=== PATIENT | male | born 1985 | race Hispanic/Latino ===

== ENCOUNTER 2018-02-08 18:23 | Emergency (ER) | payer OTHER ==
--- NOTE | 2018-02-08 19:43 | ED PDOC ---
Lower Extremity Pain/Injury Time Seen by Provider: 02/08/18 18:50 Chief Complaint (Nursing): Lower Extremity Problem/Injury Chief Complaint (Provider): Concern for DVT History Per: Patient History/Exam Limitations: no limitations Onset/Duration Of Symptoms: Days (x1) Current Symptoms Are (Timing): Still Present Additional Complaint(s): 32 year old male presents to the ED from an urgent care for concern for possible LLE DVT. Patient notes that he had a chin augmentation surgery with a subsequent revision, most recent surgery four weeks ago. He reports he has been taking it easy, exercising for the first time yesterday since the surgery, and had some left calf pain, prompting his urgent care visit today. An EKG was done there and it showed non-specific abnormalities and patient was sent to the ED for a workup. Denies chest pain and shortness of breath; reports EKG was done at Urgent Care bc he asked for it. Of note, pt. noted his pupils to be unequal (no other associated neuro symptoms) last week and was seen at [facility] and had a cxr and CT head done both of which were normal as per pt...no labs or ekg at that visit. Pt. also followed up with optho with normal exam. PMD: none provided Past Medical History Reviewed: Historical Data, Nursing Documentation, Vital Signs Vital Signs: Last Vital Signs Temp 99.8 F H 02/08/18 18:44 Pulse 109 H 02/08/18 18:44 Resp 20 02/08/18 18:44 BP 150/89 02/08/18 18:44 Pulse Ox 98 02/08/18 18:44 - Medical History PMH: No Chronic Diseases - Surgical History Other surgeries: chin augmentation - Family History Family History: States: Unknown Family Hx - Social History Current smoker - smoking cessation education provided: No Alcohol: None Drugs: Denies - Allergies Allergies/Adverse Reactions: Allergies Allergy/AdvReac Type Severity Reaction Status Date / Time amoxicillin [From Amoxil] Allergy RASH Verified 02/08/18 18:44 Review of Systems ROS Statement: Except As Marked, All Systems Reviewed And Found Negative Cardiovascular: Negative for: Chest Pain Respiratory: Negative for: Shortness of Breath Musculoskeletal: Positive for: Leg Pain (left calf) Physical Exam - Reviewed Nursing Documentation Reviewed: Yes Vital Signs Reviewed: Yes - Physical Exam Appears: Positive for: No Acute Distress Head Exam: Positive for: ATRAUMATIC, NORMOCEPHALIC Skin: Positive for: Normal Color, Warm, Dry Eye Exam: Positive for: Normal appearance, EOMI, PERRL Neck: Positive for: Normal, Painless ROM, Supple Cardiovascular/Chest: Positive for: Regular Rate, Rhythm Respiratory: Positive for: Normal Breath Sounds. Negative for: Respiratory Distress Pulses-Dorsalis Pedis (L): 2+ Pulses-Dorsalis Pedis (R): 2+ Gastrointestinal/Abdominal: Negative for: Tenderness Extremity: Positive for: Normal ROM. Negative for: Pedal Edema, Calf Tenderness (or swelling), Deformity Neurologic/Psych: Positive for: Alert, Oriented (x3). Negative for: Motor/Sensory Deficits - Laboratory Results Result Diagrams: 02/08/18 21:39 02/08/18 21:39 - ECG O2 Sat by Pulse Oximetry: 98 (RA) Pulse Ox Interpretation: Normal Medical Decision Making Medical Decision Making: Time: 1912 Initial Impression: concern for DVT Initial Plan: --EKG (due to abnormal one at urgent care) --US duplex LLE 1934 Patient in US. 1944 Patient back in bed. EKG: NSR at 73 bpm, TWI in III and AVF, [id number]; as read by me 2004 US Findings: The common femoral, superficial femoral, popliteal, and other deep venous structures compress normally and demonstrate normal color Doppler flow. Normal v enous waveforms with augmentation are seen. Impression: No evidence of deep vein thrombosis in the left femoral popliteal venous system. 2051 Additional orders: --CMP --Trop I --CBC with differential --D Dimer 2130 Pt. well appearing, no cp, no sob, HR 78. trop/d-dimer neg, pt. remains asymptomatic, no cp , no sob. will f/u cardio as outpt. Scribe Attestation: Documented by Marialuisa Tenorio, acting as a scribe for Janine Amaro PA-C. Provider Scribe Attestation: All medical record entries made by the Scribe were at my direction and personally dictated by me. I have reviewed the chart and agree that the record accurately reflects my personal performance of the history, physical exam, medical decision making, and the department course for this patient. I have also personally directed, reviewed, and agree with the discharge instructions and disposition. Disposition - Clinical Impression Clinical Impression: Leg pain - Patient ED Disposition Is Patient to be Admitted: No Counseled Patient/Family Regarding: Studies Performed, Diagnosis, Need For Followup - Disposition Referrals: Zachary Pardo MD [Staff Provider] - Disposition: Routine/Home Disposition Time: 22:52 Condition: STABLE Instructions: Nocturnal (Nighttime) Leg Cramps (DC) Forms: [facility] (Bel[place]ian)
[2018-02-08 21:47] LABS: BASO # 0.1 K/uL (0.0-0.2); EOS # 0.1 K/uL (0.0-0.7); EOS % 1.6 % (0.0-4.0); HEMOGLOBIN 15.7 g/dL (12.0-18.0); LYMPH # 1.8 K/uL (1.0-4.3); LYMPH % 22.4 % (20.0-40.0); MEAN CELL VOLUME 89.1 fl (80.0-94.0); MEAN CORPUSCULAR HEMOGLOBIN 30.2 pg (27.0-31.0); MEAN CORPUSCULAR HGB CONC 33.9 g/dL (33.0-37.0); MONO # 0.7 K/uL (0.0-0.8); MONO % 9.2 % (0.0-10.0); NEUT # 5.3 K/uL (1.8-7.0); NEUT % 65.8 % (50.0-75.0); NRBC % 0.1 % (0.0-0.0); RBC 5.22 Mil/uL (4.40-5.90); WHITE BLOOD COUNT 8.1 K/uL (4.8-10.8)
[2018-02-08 21:58] LABS: ALB/GLOB RATIO 1.5 (1.0-2.1); ALBUMIN 5.1 g/dL (3.5-5.0); ALT/SGPT 27 U/L (21-72); AST/SGOT 26 U/L (17-59); BLOOD UREA NITROGEN 11 mg/dl (9-20); CALCIUM 10.2 mg/dL (8.4-10.2); GFR NON-AFRICAN AMERICAN > 60
[2018-02-08 23:00] VITALS: BP 132/74; PULSE 89; RESP 18; TEMP 98.8; O2SAT 99
--- NOTE | 2018-02-09 14:24 | US ---
Date of service: 02/08/2018 HISTORY: swelling. PRIORS: None. FINDINGS: 2-D, color and duplex Doppler analysis of the lower extremity venous circulation using routine protocol from the femoral veins through the popliteal veins. Venous compressibility: Normal. Flow and augmentation patterns: Normal. Visualized veins upper third of calf: Normal. Adamson cyst: None. IMPRESSION: No sonographic or Doppler evidence for DVT in left lower extremity.
--- NOTE | 2018-02-09 23:09 | CARD ---
APPROVED REPORT Date of service: 02/08/2018 EKG Measurement Heart [id number] CO [id number] [id number] <Conclusion> Sinus rhythm with short CO Otherwise normal ECG
== END 2018-02-08 23:00 | disposition home or self-care (01) ==
LOC: H.ER 18:23
DX: M79.606 Pain in leg, unspecified (principal); R94.31 Abnormal electrocardiogram [ECG] [EKG]; Z88.0 Allergy status to penicillin